=== PATIENT | male | born 1980 | race Two or more races ===

== ENCOUNTER 2016-11-18 19:43 | Emergency (ER) | payer OTHER ==
[~2016-11-18] VITALS: Ht 167.6 cm; Wt 86.3 kg
[2016-11-18] MEDS ORDERED: SODIUM CHLORIDE FLUSH 10ML SYR IVF ONE (20:30)
[2016-11-18] MEDS ORDERED: SODIUM CHLORIDE 0.9% 1,000ML IVBOLUS ONE (20:30)
[2016-11-18 20:43] LABS: HEMATOCRIT 49.8 % (39.2-51.8); HEMOGLOBIN 16.7 g/dL (13.7-18.0); WHITE BLOOD COUNT 6.6 x10^3/uL (3.4-10)
[2016-11-18 20:52] LABS: BLOOD UREA NITROGEN 7 mg/dL (7-18)
[2016-11-18 20:56] LABS: ASPARTATE AMINO TRANSFERASE 154 U/L (15-37)
[2016-11-18] MEDS ORDERED: LORazepam 2 MG/ML, 1ML IVPush PRN (21:00)
[2016-11-18] MEDS ORDERED: ONDANSETRON 2MG/ML, 2ML IM ONE (21:00)
[2016-11-18] MEDS ORDERED: MAGNESIUM SULFATE 1 GM, THIAMINE 100 MG, FOLIC ACID 1 MG, MVI ADULT 10 ML in SODIUM CHL... IV ONE (21:00)
[2016-11-18] MEDS ORDERED: OMNIPAQUE 350 MG/ML, 100ML BOTTLE ONE (21:11)
[2016-11-18] MEDS ORDERED: LORazepam 2 MG/ML, 1ML ONE (22:48)
[2016-11-18 22:52] VITALS: BP 153/100
== END 2016-11-19 00:15 | disposition home or self-care (01) ==
LOC: ED 23:59
DX: K57.30 Diverticulosis of large intestine without perforation or abscess without bleeding (principal); K52.9 Noninfective gastroenteritis and colitis, unspecified; R79.89 Other specified abnormal findings of blood chemistry; F10.220 Alcohol dependence with intoxication, uncomplicated
CPT/HCPCS: 36415; 74177; 80053; 80307; 81003; 83690; 85025; 85610; 85730; 93005; 96361; 96374; 96375; 99285; J2060; J3411; J3475; J7030; Q9967